=== PATIENT | male | born 1965 | race American Indian/Alaskan Native ===

== ENCOUNTER 2023-05-08 14:24 | Inpatient (IN) | payer MEDICARE ==
[2023-05-08] MEDS ORDERED: HYDROcodone/Acetaminophen 5/325 mg Tablet PO PRN (19:03)
[2023-05-08] MEDS ORDERED: HumaLOG 300 UNITS/3 ML VIAL SC PRN ×2 (19:38)
[2023-05-08] MEDS ORDERED: Glucagon 1 MG/ML KIT IM PRN (19:38)
[2023-05-08] MEDS ORDERED: Dextrose 50% Abboject 50 ML SYRINGE SLOW IVP PRN (19:38)
[2023-05-08] MEDS ORDERED: Dextrose 5% in Water 1,000 ML IV PRN (19:38)
[2023-05-08] MEDS: Benztropine 1 MG TAB PO SCH (22:10)
[2023-05-08] MEDS: Haloperidol 1 MG TAB PO SCH (22:11)
[2023-05-09 08:10] LABS: #Eosinphils 0.1 thou/uL (0.0-0.7); #Monocytes 0.6 thou/uL (0.11-0.59); %Basophils 0.4 % (0.0-1.0); %Eosinophils 1.6 % (0.0-10.0); %Lymphocytes 20.9 % (21.0-51.0); %Monocytes 8.8 % (0.0-10.0); %Neutrophils 67.8 % (42.0-75.0); Hematocrit 28.2 % (42.0-52.0); Hemoglobin 8.8 g/dL (14.0-18.0); Mean Corpuscular HGB CONC 31.2 g/dL (32.0-36.0); Mean Corpuscular Hemoglobin 32.1 pg (27.0-31.0); Mean Corpuscular Volume 102.9 fl (78.0-98.0); Mean Platelet Volume 9.9 fL (7.4-10.4); Platelet Count 266 10x3/uL (130-400); RBC Distribution Width 15.9 % (11.5-14.5); Red Blood Cell (RBC) Count 2.74 mill/uL (4.70-6.10); White Blood Cell (WBC) Count 7.3 10x3/uL (4.8-10.8)
[2023-05-09 08:37] VITALS: BMI 20.5
[2023-05-09 08:38] LABS: Anion Gap 9 mmol/L (10-20); BUN (Urea Nitrogen) 15 mg/dL (8.4-25.7); Calc. Creatinine Clearance 105 mL/min (70-130); Calcium 9.3 mg/dL (7.8-10.44); Carbon Dioxide 20 mmol/L (22-29); Chloride 110 mmol/L (98-107); Estimated GFR 108; Glucose 78 mg/dL (70-105); Potassium 3.9 mmol/L (3.5-5.1); Sodium 135 mmol/L (136-145)
[2023-05-09] MEDS: Haloperidol 1 MG TAB PO SCH ×2 (08:54→21:18)
[2023-05-09] MEDS: Senokot 8.6 MG TAB PO SCH ×2 (08:55→21:18)
[2023-05-09] MEDS: Benztropine 1 MG TAB PO SCH ×2 (08:55→21:18)
[2023-05-09] MEDS: Sertraline 100 MG TAB PO SCH (08:56)
[2023-05-09] MEDS: Acetaminophen 325 MG TAB PO PRN (21:18)
[2023-05-10] MEDS: Melatonin 3 MG TAB PO PRN ×2 (03:45→20:54)
[2023-05-10] MEDS: Sertraline 100 MG TAB PO SCH (08:44)
[2023-05-10] MEDS: Benztropine 1 MG TAB PO SCH ×2 (08:44→20:47)
[2023-05-10] MEDS: Carvedilol 3.125 MG TAB PO SCH ×2 (08:44→16:48)
[2023-05-10] MEDS: Haloperidol 1 MG TAB PO SCH ×2 (08:44→20:54)
[2023-05-10] MEDS: Senokot 8.6 MG TAB PO SCH ×2 (08:45→20:55)
[2023-05-10] MEDS: Acetaminophen 325 MG TAB PO PRN (20:53)
[2023-05-11 05:58] LABS: #Eosinphils 0.1 thou/uL (0.0-0.7); #Monocytes 0.7 thou/uL (0.11-0.59); #Neutrophils 5.3 thou/uL (1.40-6.50); %Basophils 0.5 % (0.0-1.0); %Eosinophils 1.6 % (0.0-10.0); %Lymphocytes 21.7 % (21.0-51.0); %Monocytes 9.1 % (0.0-10.0); %Neutrophils 66.7 % (42.0-75.0); Hematocrit 26.8 % (42.0-52.0); Hemoglobin 8.9 g/dL (14.0-18.0); Mean Corpuscular HGB CONC 33.2 g/dL (32.0-36.0); Mean Corpuscular Hemoglobin 33.3 pg (27.0-31.0); Mean Corpuscular Volume 100.4 fl (78.0-98.0); Mean Platelet Volume 9.6 fL (7.4-10.4); Platelet Count 238 10x3/uL (130-400); RBC Distribution Width 15.9 % (11.5-14.5); Red Blood Cell (RBC) Count 2.67 mill/uL (4.70-6.10); White Blood Cell (WBC) Count 7.9 10x3/uL (4.8-10.8)
[2023-05-11 06:22] LABS: Anion Gap 10 mmol/L (10-20); BUN (Urea Nitrogen) 23 mg/dL (8.4-25.7); Calc. Creatinine Clearance 89 mL/min (70-130); Calcium 9.4 mg/dL (7.8-10.44); Carbon Dioxide 21 mmol/L (22-29); Chloride 110 mmol/L (98-107); Estimated GFR 103; Glucose 102 mg/dL (70-105); Potassium 3.9 mmol/L (3.5-5.1); Sodium 137 mmol/L (136-145)
[2023-05-11] MEDS: Haloperidol 1 MG TAB PO SCH ×2 (08:58→21:19)
[2023-05-11] MEDS: Sertraline 100 MG TAB PO SCH (08:58)
[2023-05-11] MEDS: Thiamine 100 MG TAB PO SCH (08:59)
[2023-05-11] MEDS: Senokot 8.6 MG TAB PO SCH ×2 (08:59→21:20)
[2023-05-11] MEDS: Aspirin Chewable 81 MG TAB PO SCH (08:59)
[2023-05-11] MEDS: Benztropine 1 MG TAB PO SCH ×2 (08:59→21:20)
[2023-05-11] MEDS: Folic Acid 1 MG TAB PO SCH (08:59)
[2023-05-11] MEDS: Atorvastatin Calcium 40 MG TAB PO SCH (08:59)
[2023-05-11] MEDS: Carvedilol 3.125 MG TAB PO SCH ×2 (08:59→16:20)
[2023-05-11] MEDS: Melatonin 3 MG TAB PO PRN (21:20)
[2023-05-11] MEDS: Acetaminophen 325 MG TAB PO PRN (21:20)
[2023-05-12] MEDS ORDERED: diphenhydrAMINE 25 MG CAP PO SCH (01:30)
[2023-05-12] MEDS ORDERED: Ferrous Sulfate 325 MG TAB PO SCH (08:00)
[2023-05-12] MEDS: Sertraline 100 MG TAB PO SCH (09:07)
[2023-05-12] MEDS: Atorvastatin Calcium 40 MG TAB PO SCH (09:09)
[2023-05-12] MEDS: Folic Acid 1 MG TAB PO SCH (09:10)
[2023-05-12] MEDS: Haloperidol 1 MG TAB PO SCH (09:11)
[2023-05-12] MEDS: Senokot 8.6 MG TAB PO SCH (09:13)
[2023-05-12] MEDS: Aspirin Chewable 81 MG TAB PO SCH (09:15)
[2023-05-12] MEDS: Thiamine 100 MG TAB PO SCH (09:15)
[2023-05-12] MEDS: Benztropine 1 MG TAB PO SCH (09:16)
[2023-05-12] MEDS: Carvedilol 3.125 MG TAB PO SCH ×2 (09:17→18:07)
[2023-05-12 16:03] VITALS: BP 107/61; TEMP 98.3
== END 2023-05-12 19:20 | DRG 948 ==
LOC: 2SE 18:15 → OBSVTOIN 05-09 11:10
PROVIDERS: ADMIT Family Medicine; ATTEND Family Medicine
DX: R41.82 Altered mental status, unspecified (principal); F20.0 Paranoid schizophrenia; I69.198 Other sequelae of nontraumatic intracerebral hemorrhage; R54 Age-related physical debility; F31.9 Bipolar disorder, unspecified; E11.9 Type 2 diabetes mellitus without complications; Z79.4 Long term (current) use of insulin; Z79.899 Other long term (current) drug therapy; Z79.84 Long term (current) use of oral hypoglycemic drugs; Z98.41 Cataract extraction status, right eye; Z98.42 Cataract extraction status, left eye; I10 Essential (primary) hypertension
CPT/HCPCS: 36415; 36416; 80048; 85025